=== PATIENT | male | born 1980 | race Caucasian/White ===

== ENCOUNTER 2023-10-31 06:06 | Day surgery (SDC) | payer BC, OTHER ==
[~2023-10-31] VITALS: Ht 182.9 cm; Wt 81.6 kg
[~2023-10-31 06:06] MED LIST: ceFAZolin SOD 2 GM in IV 1 EA IV ONE
[2023-10-31] MEDS ORDERED: MIDAZOLAM INJ 2MG/2ML VIAL As Ordered ONE (07:26)
[2023-10-31] MEDS ORDERED: fentaNYL 100 MCG/2 ML INJECTION As Ordered ONE (07:26)
[2023-10-31] MEDS ORDERED: KETOROLAC 60MG 2ML VIAL As Ordered ONE (07:26)
[2023-10-31] MEDS ORDERED: SUGAMMADEX SODIUM 500 MG/5 ML VIAL (BRIDION) As Ordered ONE (07:26)
[2023-10-31] MEDS ORDERED: propofoL 200 MG/20 ML VIAL As Ordered ONE (07:26)
[2023-10-31] MEDS ORDERED: ROCURONIUM BROMIDE 50MG/5ML VIAL As Ordered ONE (07:26)
[2023-10-31] MEDS ORDERED: LIDOCAINE 2% 100MG/5ML SDV (FOR ANES.) As Ordered ONE (07:26)
[2023-10-31] MEDS ORDERED: ONDANSETRON 4MG 2ML VIAL As Ordered ONE (07:26)
[2023-10-31] MEDS ORDERED: LR 1,000 ML IV SCH (07:35)
[2023-10-31] MEDS ORDERED: ACETAMINOPHEN 1000MG 100ML IV BAG As Ordered ONE (08:09)
[2023-10-31] MEDS ORDERED: oxyCODONE 5MG TAB PO PRN (08:40)
[2023-10-31] MEDS ORDERED: fentaNYL 100 MCG/2 ML INJECTION IV PRN (08:40)
[2023-10-31] MEDS ORDERED: ONDANSETRON 4MG 2ML VIAL IV PRN (08:40)
[2023-10-31] MEDS ORDERED: NORCO, ANEXSIA 5/325MG TABLET (HYDROcodone/ACETAMINOPHEN) PO PRN (09:10)
[2023-10-31 09:55] VITALS: BP 137/84; TEMP 97.6; O2SAT 99
== END 2023-10-31 10:23 | disposition home or self-care (01) ==
LOC: M SDC 06:06
PROVIDERS: ATTEND Surgery
DX: K40.20 Bilateral inguinal hernia, without obstruction or gangrene, not specified as recurrent (principal); Z88.5 Allergy status to narcotic agent
CPT/HCPCS: 49650; C1781; J0131; J0665; J0690; J1100; J1885; J2250; J2405; J3010; S2900

== ENCOUNTER → 2024-01-26 | Outpatient (CLI) | payer OTHER ==
[~2024-01-26] MED LIST changes: +GASTROGRAFIN SOLUTION 30ML ONE; +ISOVUE-370 76% 100ML VIAL ONE; -ceFAZolin SOD 2 GM in IV 1 EA IV ONE
== END ==
LOC: M PLAIMG 07:58
PROVIDERS: ATTEND Physician Assistant
DX: R22.41 Localized swelling, mass and lump, right lower limb (principal); K76.89 Other specified diseases of liver; N28.1 Cyst of kidney, acquired; K40.20 Bilateral inguinal hernia, without obstruction or gangrene, not specified as recurrent; K42.9 Umbilical hernia without obstruction or gangrene; M16.0 Bilateral primary osteoarthritis of hip